=== PATIENT | female | born 1950 | race Asian ===

== ENCOUNTER 2016-09-18 17:48 | Observation (INO) | payer MEDICARE, MEDICAID ==
[~2016-09-18] VITALS: Ht 154.9 cm; Wt 61.3 kg
[2016-09-18 19:24] LABS: DAU SCREEN DISCLAIMER
[2016-09-18 19:30] LABS: HEMOGLOBIN 13.7 g/dL (11.7-16.4)
[2016-09-18 19:41] LABS: BLOOD UREA NITROGEN 18 mg/dL (7-18)
[2016-09-18 19:43] LABS: ACETAMINOPHEN < 2 mcg/mL (10-30)
[2016-09-18] MEDS ORDERED: TRAZODONE 50MG TABLET PO PRN (22:00)
[2016-09-18 22:30] VITALS: BP 175/79
[2016-09-19 04:04] VITALS: BP 137/75
== END 2016-09-19 04:06 ==
LOC: ED 20:59 → EDIP 21:00 → INTOOBSV 21:00 → ED 21:45 → 3E 22:20
PROVIDERS: ADMIT Internal Medicine; ATTEND Internal Medicine
DX: F33.2 Major depressive disorder, recurrent severe without psychotic features (principal); G47.00 Insomnia, unspecified; E87.1 Hypo-osmolality and hyponatremia; K76.9 Liver disease, unspecified; Z90.710 Acquired absence of both cervix and uterus; Z90.49 Acquired absence of other specified parts of digestive tract
CPT/HCPCS: 36415; 80048; 80307; 80329; 82040; 84439; 84443; 85025; 99285; G0378; G0480

== ENCOUNTER 2016-09-18 17:48 | Emergency (ER) | payer MEDICARE, MEDICAID | END 2016-09-18 17:52 | LOC: ED 17:49 | DX: F33.2 Major depressive disorder, recurrent severe without psychotic features (principal) | CPT/HCPCS: 99284 ==

== ENCOUNTER 2016-11-16 09:51 | Emergency (ER) | payer MEDICARE, MEDICAID ==
[~2016-11-16] VITALS: Ht 152.4 cm; Wt 60.4 kg
[2016-11-16] MEDS ORDERED: SODIUM CHLORIDE 0.9% 1,000 ML IV ONE (10:25)
[2016-11-16] MEDS ORDERED: SODIUM CHLORIDE FLUSH 10ML SYR IVF ONE (10:30)
[2016-11-16] MEDS ORDERED: SODIUM CHLORIDE 0.9% 1,000ML IVBOLUS ONE (10:30)
[2016-11-16 10:50] LABS: ASPARTATE AMINO TRANSFERASE 19 U/L (15-37); BLOOD UREA NITROGEN 16 mg/dL (7-18)
[2016-11-16 12:11] LABS: PATH.CAST-FLAG NOT PRESENT; SPERM-FLAG NOT PRESENT; SRC-FLAG NOT PRESENT; XTAL-FLAG NOT PRESENT; YLC-FLAG NOT PRESENT
[2016-11-16] MEDS ORDERED: MAGNESIUM CITRATE 300ML ORAL SOL PO ONE (13:30)
[2016-11-16 13:31] VITALS: BP 125/79
[2016-11-16] MEDS ORDERED: MAGNESIUM CITRATE 300ML ORAL SOL ONE (13:35)
== END 2016-11-16 13:52 | disposition other institution (70) ==
LOC: ED 10:27
DX: K59.00 Constipation, unspecified (principal); G20 Parkinson's disease
CPT/HCPCS: 36415; 74022; 80053; 81001; 85025; 87086; 96360; 96361; 99285; J7030

== ENCOUNTER → 2017-02-14 | Outpatient (CLI) | payer MEDICARE, MEDICAID | END | disposition home or self-care (01) | LOC: CFH 09:32 | PROVIDERS: ATTEND Internal Medicine Gastroenterology | DX: K76.89 Other specified diseases of liver (principal); B18.1 Chronic viral hepatitis B without delta-agent; R63.4 Abnormal weight loss; Z90.49 Acquired absence of other specified parts of digestive tract | CPT/HCPCS: 76705 ==